=== PATIENT | female | born 1950 | race Caucasian/White ===

== ENCOUNTER 2017-10-17 21:31 | Inpatient (IN) | payer MEDICARE, OTHER, MEDICAID ==
[2017-10-17] MEDS: LEVALBUTEROL (NEB) 1.25 MG/0.5 ML AMP HHN (21:56)
[2017-10-17] MEDS: CEFEPIME 2GM/50 ML (PMX) 50 ML IVPB (22:06)
[2017-10-17] MEDS: hydrALAzine 20 MG INJ IV (22:07)
[2017-10-17] MEDS: SODIUM CHLORIDE 0.9% 1L BAG IV* (22:08)
[2017-10-17 22:11] LABS: ADD MAN DIFF? NO
[2017-10-17] MEDS: LORAZEPAM 2 MG INJ IV (22:12)
[2017-10-17 22:14] LABS: WHITE BLOOD COUNT 7.6 10^3/ul (4.8-10.8)
[2017-10-17 22:14] LABS: BASOPHIL # 0.1 10^3/ul (0.0-0.1); BASOPHILS % 0.8 % (0.0-2.0); EOSINOPHILS # 0.3 10^3/ul (0.0-0.5); EOSINOPHILS % 3.8 % (0.0-7.0); HEMATOCRIT 42.7 % (37.0-47.0); HEMOGLOBIN 13.3 g/dl (12.0-16.0); LYMPHOCYTES # 2.8 10^3/ul (0.8-2.9); LYMPHOCYTES % 36.3 % (15.0-51.0); MEAN CORPUSCULAR HGB CONC 31.1 g/dl (32.0-37.0); MEAN CORPUSCULAR VOLUME 89.9 fl (82.0-101.0); MEAN PLATELET VOLUME 11.7 fl (7.4-10.4); MONOCYTE # 0.9 10^3/ul (0.3-0.9); MONOCYTES % 12.2 % (0.0-11.0); NEUTROPHIL # 3.5 10^3/ul (1.6-7.5); NEUTROPHILS % 46.6 % (39.0-77.0); PLATELET COUNT 239 10^3/UL (140-415); RED BLOOD COUNT 4.75 10^6/ul (4.20-5.40); RED CELL DISTRIBUTION WIDTH 14.9 % (11.5-14.5)
[2017-10-17] MEDS: METHYLPREDNISOLONE 125 MG INJ IV (22:23)
[2017-10-17 22:35] LABS: PARTIAL THROMBOPLASTIN TIME 25.1 Sec (25.0-35.0); PROTIME 12.2 Sec (11.9-14.9)
[2017-10-17 22:37] LABS: ALANINE AMINOTRANSFERASE 15 IU/L (13-69); ALBUMIN 4.2 g/dl (3.3-4.9); ALKALINE PHOSPHATASE 87 IU/L (42-121); ANION GAP 15 (8-16); ASPARTATE AMINO TRANSFERASE 25 IU/L (15-46); BILIRUBIN,INDIRECT 0.4 mg/dl (0-1.1); BILIRUBIN,TOTAL 0.4 mg/dl (0.2-1.3); BLOOD UREA NITROGEN 24 mg/dl (7-20); CALCIUM 9.8 mg/dl (8.4-10.2); CARBON DIOXIDE 33 mmol/L (21-31); CHLORIDE 101 mmol/L (97-110); CREATININE 0.64 mg/dl (0.44-1.00); GLUCOSE 123 mg/dl (70-220); POTASSIUM 4.3 mmol/L (3.5-5.1); SODIUM 145 mmol/L (135-144); TOTAL PROTEIN 7.7 g/dl (6.1-8.1)
[2017-10-17 22:43] LABS: LACTIC ACID 1.9 mmol/L (0.5-2.0)
[2017-10-17 22:53] LABS: B-TYPE NATRIURETIC PEPTIDE 227 PG/ML (0-125); TROPONIN-I 0.012 ng/ml (0.00-0.12)
[2017-10-17 23:23] LABS: URINE PH (Dip) POC 5.5 (5.0-8.5)
[2017-10-17 23:23] LABS: URINE BLOOD (Dip) POC Negative (NEGATIVE); URINE GLUCOSE (Dip) POC Negative (NEGATIVE); URINE KETONES (Dip) POC 1+ (NEGATIVE); URINE LEUKOCYTE EST (Dip) POC Negative (NEGATIVE); URINE NITRITE (Dip) POC Negative (NEGATIVE); URINE TOTAL PROTEIN POC 1+ (NEGATIVE)
[2017-10-18 00:04] LABS: ADD UMIC YES; UR AMORPHOUS CRYSTAL FEW /HPF (NONE SEEN); UR ASCORBIC ACID NEGATIVE (NEGATIVE); UR BILIRUBIN (Dip) NEGATIVE (NEGATIVE); UR BLOOD (Dip) NEGATIVE (NEGATIVE); UR CLARITY CLEAR (CLEAR); UR COLOR YELLOW (YELLOW); UR GLUCOSE (Dip) NEGATIVE (NEGATIVE); UR GRANULAR CAST FEW /HPF (NONE SEEN); UR KETONES (Dip) 1+ mg/dL (NEGATIVE); UR LEUKOCYTE ESTERASE (Dip) NEGATIVE Leu/ul (NEGATIVE); UR MUCUS MODERATE /HPF (NONE SEEN); UR NITRITE (Dip) NEGATIVE (NEGATIVE); UR RBC 5 /HPF (0-5); UR SPECIFIC GRAVITY (Dip) 1.023 (1.003-1.030); UR TOTAL PROTEIN (Dip) 1+ mg/dl (NEGATIVE); UR UROBILINOGEN (Dip) NEGATIVE (NEGATIVE); UR WBC 3 /HPF (0-5)
[2017-10-18] MEDS ORDERED: ACETAMINOPHEN 325 MG TAB PO (00:30)
[2017-10-18] MEDS ORDERED: ONDANSETRON 4 MG INJ IV (00:30)
[2017-10-18 00:35] LABS: LACTIC ACID 2.3 mmol/L (0.5-2.0)
[2017-10-18] MEDS ORDERED: BISACODYL (EC) 5 MG TAB PO (04:00)
[2017-10-18] MEDS ORDERED: MAGNESIUM HYDROXIDE 30ML CUP PO (04:00)
[2017-10-18] MEDS: LEVALBUTEROL (NEB) 0.63 MG/3 ML AMP HHN ×4 (04:31→19:59)
[2017-10-18 04:32] LABS: LACTIC ACID 2.9 mmol/L (0.5-2.0)
[2017-10-18] MEDS: ASPIRIN (EC) 81 MG TAB PO (09:00)
[2017-10-18] MEDS: AMLODIPINE 5 MG TAB PO (09:00)
[2017-10-18] MEDS: MULTIVITAMINS/MINERALS TAB PO (09:00)
[2017-10-18] MEDS: METHYLPREDNISOLONE 125 MG INJ IV (09:04)
[2017-10-18] MEDS: ENOXAPARIN 40 MG/0.4 ML SYG SC ×2 (09:07→20:15)
[2017-10-18] MEDS: ENALAPRILAT 1.25 MG INJ IV ×2 (09:12→19:57)
[2017-10-18] MEDS ORDERED: LEVALBUTEROL (NEB) 0.63 MG/3 ML AMP HHN (13:00)
[2017-10-18] MEDS ORDERED: [UNRECOGNIZED DRUG - OTHER] IM* (13:00)
[2017-10-18] MEDS ORDERED: VANCOMYCIN IV PER PHARMACY XX (13:00)
[2017-10-18 13:11] LABS: ADD MAN DIFF? NO
[2017-10-18 13:13] LABS: WHITE BLOOD COUNT 7.1 10^3/ul (4.8-10.8)
[2017-10-18 13:13] LABS: ABNORMAL IP MESSAGE 1; HEMOGLOBIN 11.8 g/dl (12.0-16.0); LYMPHOCYTES # 0.4 10^3/ul (0.8-2.9); LYMPHOCYTES % 6.2 % (15.0-51.0); MEAN CORPUSCULAR HEMOGLOBIN 28.5 pg (29.0-33.0); MEAN CORPUSCULAR HGB CONC 31.9 g/dl (32.0-37.0); MEAN CORPUSCULAR VOLUME 89.4 fl (82.0-101.0); MEAN PLATELET VOLUME 10.7 fl (7.4-10.4); MONOCYTE # 0.2 10^3/ul (0.3-0.9); MONOCYTES % 2.4 % (0.0-11.0); NEUTROPHIL # 6.5 10^3/ul (1.6-7.5); NEUTROPHILS % 91.1 % (39.0-77.0); PLATELET COUNT 232 10^3/UL (140-415); RED BLOOD COUNT 4.14 10^6/ul (4.20-5.40); RED CELL DISTRIBUTION WIDTH 15.3 % (11.5-14.5)
[2017-10-18 13:32] LABS: ANION GAP 14 (8-16); BLOOD UREA NITROGEN 24 mg/dl (7-20); CALCIUM 9.1 mg/dl (8.4-10.2); CARBON DIOXIDE 30 mmol/L (21-31); CHLORIDE 105 mmol/L (97-110); CREATININE 0.63 mg/dl (0.44-1.00); GLUCOSE 148 mg/dl (70-220); POTASSIUM 4.3 mmol/L (3.5-5.1); SODIUM 145 mmol/L (135-144)
[2017-10-18] MEDS ORDERED: VANCOMYCIN 1.25 GM in SOD CHLORIDE 0.9% 250 ML IVPB (14:00)
[2017-10-18] MEDS: ATORVASTATIN 10 MG TAB PO (20:11)
[2017-10-18] MEDS: MIRTAZAPINE 15 MG TAB PO (20:11)
[2017-10-19] MEDS: LEVALBUTEROL (NEB) 0.63 MG/3 ML AMP HHN ×4 (01:20→21:16)
[2017-10-19 07:51] LABS: ADD MAN DIFF? NO
[2017-10-19 07:56] LABS: WHITE BLOOD COUNT 11.3 10^3/ul (4.8-10.8)
[2017-10-19 07:56] LABS: BASOPHILS % 0.2 % (0.0-2.0); EOSINOPHILS % 0.3 % (0.0-7.0); HEMATOCRIT 36.7 % (37.0-47.0); HEMOGLOBIN 11.6 g/dl (12.0-16.0); LYMPHOCYTES # 1.3 10^3/ul (0.8-2.9); LYMPHOCYTES % 11.2 % (15.0-51.0); MEAN CORPUSCULAR HEMOGLOBIN 28.4 pg (29.0-33.0); MEAN CORPUSCULAR HGB CONC 31.6 g/dl (32.0-37.0); MEAN CORPUSCULAR VOLUME 89.7 fl (82.0-101.0); MEAN PLATELET VOLUME 11.4 fl (7.4-10.4); MONOCYTE # 1.1 10^3/ul (0.3-0.9); MONOCYTES % 9.9 % (0.0-11.0); NEUTROPHIL # 8.8 10^3/ul (1.6-7.5); PLATELET COUNT 229 10^3/UL (140-415); RED BLOOD COUNT 4.09 10^6/ul (4.20-5.40); RED CELL DISTRIBUTION WIDTH 15.9 % (11.5-14.5)
[2017-10-19 08:17] LABS: ANION GAP 12 (8-16); BLOOD UREA NITROGEN 23 mg/dl (7-20); CARBON DIOXIDE 30 mmol/L (21-31); CHLORIDE 107 mmol/L (97-110); CREATININE 0.66 mg/dl (0.44-1.00); GLUCOSE 82 mg/dl (70-220); POTASSIUM 3.8 mmol/L (3.5-5.1); SODIUM 145 mmol/L (135-144)
[2017-10-19] MEDS: AMLODIPINE 5 MG TAB PO (09:00)
[2017-10-19] MEDS: ENOXAPARIN 40 MG/0.4 ML SYG SC (09:00)
[2017-10-19] MEDS: MULTIVITAMINS/MINERALS TAB PO (09:00)
[2017-10-19] MEDS: ASPIRIN (EC) 81 MG TAB PO (09:00)
[2017-10-19] MEDS: METHYLPREDNISOLONE 125 MG INJ IV (09:31)
[2017-10-19] MEDS: INFLUENZA VIRUS VACCINE 0.5 ML (DISPENSING) IM* (11:00)
[2017-10-19] MEDS: ENALAPRILAT 1.25 MG INJ IV (12:32)
[2017-10-19] MEDS ORDERED: VANCOMYCIN IV PER PHARMACY XX (15:00)
[2017-10-19] MEDS: VANCOMYCIN 1.25 GM in SOD CHLORIDE 0.9% 250 ML IVPB (16:37)
[2017-10-19 19:56] LABS: MAGNESIUM 1.5 mg/dl (1.7-2.5)
[2017-10-19] MEDS: MAGNESIUM SULFATE 2 GM/50 ML 50 ML IVPB (20:28)
[2017-10-19] MEDS: METOPROLOL 50 MG TAB GTB (21:00)
[2017-10-19] MEDS: ATORVASTATIN 10 MG TAB PO (21:00)
[2017-10-19] MEDS: MIRTAZAPINE 15 MG TAB PO (21:00)
[2017-10-19] MEDS: METHYLPREDNISOLONE 40 MG INJ IV (22:02)
[2017-10-19] MEDS: POTASSIUM CHLORIDE 50 ML IVPB (22:33)
[2017-10-20] MEDS: POTASSIUM CHLORIDE 50 ML IVPB ×2 (00:02→01:13)
[2017-10-20] MEDS: hydrALAzine 20 MG INJ IV ×2 (01:09→23:45)
[2017-10-20] MEDS: LEVALBUTEROL (NEB) 0.63 MG/3 ML AMP HHN ×4 (01:17→19:39)
[2017-10-20] MEDS: MAGNESIUM SULFATE 2 GM/50 ML 50 ML IVPB (08:00)
[2017-10-20 08:42] LABS: ADD MAN DIFF? NO
[2017-10-20 08:44] LABS: BASOPHILS % 0.2 % (0.0-2.0); EOSINOPHILS % 0.4 % (0.0-7.0); HEMATOCRIT 36.5 % (37.0-47.0); HEMOGLOBIN 11.5 g/dl (12.0-16.0); LYMPHOCYTES # 1.3 10^3/ul (0.8-2.9); LYMPHOCYTES % 11.6 % (15.0-51.0); MEAN CORPUSCULAR HEMOGLOBIN 27.9 pg (29.0-33.0); MEAN CORPUSCULAR HGB CONC 31.5 g/dl (32.0-37.0); MEAN CORPUSCULAR VOLUME 88.6 fl (82.0-101.0); MEAN PLATELET VOLUME 10.9 fl (7.4-10.4); MONOCYTE # 1.3 10^3/ul (0.3-0.9); MONOCYTES % 11.3 % (0.0-11.0); NEUTROPHIL # 8.6 10^3/ul (1.6-7.5); NEUTROPHILS % 76.1 % (39.0-77.0); PLATELET COUNT 258 10^3/UL (140-415); RED BLOOD COUNT 4.12 10^6/ul (4.20-5.40); RED CELL DISTRIBUTION WIDTH 15.4 % (11.5-14.5)
[2017-10-20 08:44] LABS: WHITE BLOOD COUNT 11.3 10^3/ul (4.8-10.8)
[2017-10-20] MEDS: ASPIRIN (EC) 81 MG TAB PO (09:00)
[2017-10-20] MEDS: MULTIVITAMINS/MINERALS TAB PO (09:00)
[2017-10-20] MEDS: METOPROLOL 100 MG TAB GTB ×2 (09:00→21:00)
[2017-10-20] MEDS ORDERED: METOPROLOL 50 MG TAB GTB (09:00)
[2017-10-20] MEDS: AMLODIPINE 5 MG TAB PO (09:00)
[2017-10-20 09:07] LABS: ANION GAP 10 (8-16); BLOOD UREA NITROGEN 18 mg/dl (7-20); CALCIUM 8.7 mg/dl (8.4-10.2); CARBON DIOXIDE 34 mmol/L (21-31); CHLORIDE 101 mmol/L (97-110); CREATININE 0.59 mg/dl (0.44-1.00); GLUCOSE 80 mg/dl (70-220); MAGNESIUM 2.1 mg/dl (1.7-2.5); POTASSIUM 4.2 mmol/L (3.5-5.1); SODIUM 141 mmol/L (135-144)
[2017-10-20] MEDS: METHYLPREDNISOLONE 40 MG INJ IV ×2 (09:49→21:44)
[2017-10-20] MEDS: ENOXAPARIN 40 MG/0.4 ML SYG SC (09:54)
[2017-10-20] MEDS: VANCOMYCIN 500MG/NS (PMX) 100 ML IVPB ×2 (13:20→23:48)
[2017-10-20] MEDS ORDERED: VANCOMYCIN 1 GM 250 ML IVPB (17:00)
[2017-10-20] MEDS: RISPERIDONE 0.25 MG TAB PO (21:00)
[2017-10-20] MEDS ORDERED: HALOPERIDOL 5 MG INJ IM (21:00)
[2017-10-20] MEDS: MIRTAZAPINE 15 MG TAB PO (21:00)
[2017-10-20] MEDS: ATORVASTATIN 10 MG TAB PO (21:00)
[2017-10-21] MEDS: LEVALBUTEROL (NEB) 0.63 MG/3 ML AMP HHN ×4 (01:19→19:26)
[2017-10-21] MEDS: AMLODIPINE 5 MG TAB PO (09:00)
[2017-10-21] MEDS: ENOXAPARIN 40 MG/0.4 ML SYG SC (09:00)
[2017-10-21] MEDS: MULTIVITAMINS/MINERALS TAB PO (09:00)
[2017-10-21] MEDS: RISPERIDONE 0.25 MG TAB PO ×2 (09:00→21:07)
[2017-10-21] MEDS: ASPIRIN (EC) 81 MG TAB PO (09:00)
[2017-10-21] MEDS: METOPROLOL 100 MG TAB GTB ×2 (09:00→21:07)
[2017-10-21] MEDS: METHYLPREDNISOLONE 40 MG INJ IV ×2 (09:39→21:07)
[2017-10-21] MEDS: hydrALAzine 20 MG INJ IV (09:40)
[2017-10-21] MEDS: HALOPERIDOL 5 MG INJ IM ×2 (10:30→12:00)
[2017-10-21 11:33] LABS: VANCOMYCIN,TROUGH 13.4 ug/ml (10.0-20.0)
[2017-10-21] MEDS: BENZTROPINE 2 MG INJ IM (11:59)
[2017-10-21] MEDS: VALPROIC ACID 250 MG CAP PO ×2 (12:00→21:06)
[2017-10-21] MEDS: VANCOMYCIN 500MG/NS (PMX) 100 ML IVPB ×2 (12:15→23:02)
[2017-10-21] MEDS: MIRTAZAPINE 15 MG TAB PO (21:06)
[2017-10-21] MEDS: ATORVASTATIN 10 MG TAB PO (21:06)
[2017-10-22] MEDS: HALOPERIDOL 5 MG INJ IM ×2 (00:09→10:27)
[2017-10-22] MEDS: BENZTROPINE 2 MG INJ IM ×2 (00:10→10:25)
[2017-10-22] MEDS: LEVALBUTEROL (NEB) 0.63 MG/3 ML AMP HHN ×4 (01:25→19:33)
[2017-10-22] MEDS: AMLODIPINE 5 MG TAB PO (09:00)
[2017-10-22] MEDS: ASPIRIN (EC) 81 MG TAB PO (09:00)
[2017-10-22] MEDS: RISPERIDONE 0.25 MG TAB PO ×2 (09:00→21:18)
[2017-10-22] MEDS: METOPROLOL 100 MG TAB GTB ×2 (09:00→21:19)
[2017-10-22] MEDS: VALPROIC ACID 250 MG CAP PO ×2 (09:00→21:18)
[2017-10-22] MEDS: MULTIVITAMINS/MINERALS TAB PO (09:00)
[2017-10-22] MEDS: ENOXAPARIN 40 MG/0.4 ML SYG SC (09:00)
[2017-10-22] MEDS: hydrALAzine 20 MG INJ IV ×2 (09:38→21:14)
[2017-10-22] MEDS: METHYLPREDNISOLONE 40 MG INJ IV ×2 (09:38→21:14)
[2017-10-22] MEDS: VANCOMYCIN 500MG/NS (PMX) 100 ML IVPB ×2 (11:23→23:00)
[2017-10-22] MEDS: MIRTAZAPINE 15 MG TAB PO (21:17)
[2017-10-22] MEDS: ATORVASTATIN 10 MG TAB PO (21:18)
[2017-10-23] MEDS: ENALAPRILAT 1.25 MG INJ IV (01:25)
[2017-10-23] MEDS: LEVALBUTEROL (NEB) 0.63 MG/3 ML AMP HHN ×4 (01:57→20:00)
[2017-10-23 08:56] LABS: ADD MAN DIFF? NO
[2017-10-23 08:58] LABS: BASOPHILS % 0.1 % (0.0-2.0); HEMATOCRIT 42.2 % (37.0-47.0); HEMOGLOBIN 13.6 g/dl (12.0-16.0); LYMPHOCYTES # 0.9 10^3/ul (0.8-2.9); LYMPHOCYTES % 11.7 % (15.0-51.0); MEAN CORPUSCULAR HGB CONC 32.2 g/dl (32.0-37.0); MONOCYTE # 0.7 10^3/ul (0.3-0.9); MONOCYTES % 8.6 % (0.0-11.0); NEUTROPHIL # 6.4 10^3/ul (1.6-7.5); PLATELET COUNT 327 10^3/UL (140-415); RED BLOOD COUNT 4.85 10^6/ul (4.20-5.40); RED CELL DISTRIBUTION WIDTH 15.9 % (11.5-14.5)
[2017-10-23 08:58] LABS: WHITE BLOOD COUNT 8.1 10^3/ul (4.8-10.8)
[2017-10-23] MEDS: AMLODIPINE 5 MG TAB PO (09:00)
[2017-10-23] MEDS: ASPIRIN (EC) 81 MG TAB PO (09:00)
[2017-10-23] MEDS: MULTIVITAMINS/MINERALS TAB PO (09:00)
[2017-10-23] MEDS: METOPROLOL 100 MG TAB GTB ×2 (09:00→21:00)
[2017-10-23] MEDS: VALPROIC ACID 250 MG CAP PO ×2 (09:00→21:00)
[2017-10-23] MEDS: RISPERIDONE 0.25 MG TAB PO ×2 (09:00→21:00)
[2017-10-23] MEDS: METHYLPREDNISOLONE 40 MG INJ IV ×2 (09:00→22:05)
[2017-10-23] MEDS: ENOXAPARIN 40 MG/0.4 ML SYG SC (09:00)
[2017-10-23 09:29] LABS: ANION GAP 17 (8-16); BLOOD UREA NITROGEN 27 mg/dl (7-20); CALCIUM 9.5 mg/dl (8.4-10.2); CARBON DIOXIDE 31 mmol/L (21-31); CHLORIDE 97 mmol/L (97-110); CREATININE 0.73 mg/dl (0.44-1.00); GLUCOSE 97 mg/dl (70-220); POTASSIUM 4.3 mmol/L (3.5-5.1); SODIUM 141 mmol/L (135-144)
[2017-10-23] MEDS: VANCOMYCIN 500MG/NS (PMX) 100 ML IVPB (12:38)
[2017-10-23] MEDS: MIRTAZAPINE 15 MG TAB PO (21:00)
[2017-10-23] MEDS: ATORVASTATIN 10 MG TAB PO (21:00)
[2017-10-24] MEDS: LEVALBUTEROL (NEB) 0.63 MG/3 ML AMP HHN ×4 (01:35→20:00)
[2017-10-24] MEDS: HALOPERIDOL 5 MG INJ IM ×2 (03:11→09:03)
[2017-10-24] MEDS: BENZTROPINE 2 MG INJ IM ×2 (03:12→09:00)
[2017-10-24] MEDS: METHYLPREDNISOLONE 40 MG INJ IV ×2 (08:59→20:22)
[2017-10-24] MEDS: MULTIVITAMINS/MINERALS TAB PO (09:00)
[2017-10-24] MEDS: METOPROLOL 100 MG TAB GTB ×2 (09:00→21:00)
[2017-10-24] MEDS: VALPROIC ACID 250 MG CAP PO ×2 (09:00→21:00)
[2017-10-24] MEDS: ASPIRIN (EC) 81 MG TAB PO (09:00)
[2017-10-24] MEDS: RISPERIDONE 0.25 MG TAB PO ×2 (09:00→21:00)
[2017-10-24] MEDS: AMLODIPINE 5 MG TAB PO (09:00)
[2017-10-24] MEDS: ENOXAPARIN 40 MG/0.4 ML SYG SC (09:11)
[2017-10-24 12:42] LABS: ADD MAN DIFF? NO
[2017-10-24 13:04] LABS: BASOPHILS % 0.1 % (0.0-2.0); HEMATOCRIT 42.8 % (37.0-47.0); HEMOGLOBIN 13.8 g/dl (12.0-16.0); LYMPHOCYTES # 0.6 10^3/ul (0.8-2.9); LYMPHOCYTES % 3.8 % (15.0-51.0); MEAN CORPUSCULAR HEMOGLOBIN 28.3 pg (29.0-33.0); MEAN CORPUSCULAR HGB CONC 32.2 g/dl (32.0-37.0); MEAN CORPUSCULAR VOLUME 87.7 fl (82.0-101.0); MEAN PLATELET VOLUME 10.9 fl (7.4-10.4); MONOCYTE # 0.8 10^3/ul (0.3-0.9); MONOCYTES % 5.2 % (0.0-11.0); NEUTROPHIL # 14.3 10^3/ul (1.6-7.5); NEUTROPHILS % 90.5 % (39.0-77.0); PLATELET COUNT 326 10^3/UL (140-415); RED BLOOD COUNT 4.88 10^6/ul (4.20-5.40); RED CELL DISTRIBUTION WIDTH 15.8 % (11.5-14.5)
[2017-10-24 13:04] LABS: WHITE BLOOD COUNT 15.9 10^3/ul (4.8-10.8)
[2017-10-24 13:07] LABS: ANION GAP 15 (8-16); BLOOD UREA NITROGEN 46 mg/dl (7-20); CALCIUM 9.3 mg/dl (8.4-10.2); CARBON DIOXIDE 32 mmol/L (21-31); CHLORIDE 96 mmol/L (97-110); CREATININE 0.71 mg/dl (0.44-1.00); GLUCOSE 146 mg/dl (70-220); POTASSIUM 4.6 mmol/L (3.5-5.1); SODIUM 138 mmol/L (135-144)
[2017-10-24] MEDS: ATORVASTATIN 10 MG TAB PO (21:00)
[2017-10-24] MEDS: MIRTAZAPINE 15 MG TAB PO (21:00)
[2017-10-25] MEDS: LEVALBUTEROL (NEB) 0.63 MG/3 ML AMP HHN ×4 (01:13→19:53)
[2017-10-25] MEDS: AMLODIPINE 5 MG TAB PO (09:00)
[2017-10-25] MEDS: METOPROLOL 100 MG TAB GTB (09:00)
[2017-10-25] MEDS: ASPIRIN (EC) 81 MG TAB PO (09:00)
[2017-10-25] MEDS: RISPERIDONE 0.25 MG TAB PO (09:00)
[2017-10-25] MEDS: VALPROIC ACID 250 MG CAP PO (09:00)
[2017-10-25] MEDS: MULTIVITAMINS/MINERALS TAB PO (09:00)
[2017-10-25] MEDS: METHYLPREDNISOLONE 40 MG INJ IV (09:15)
[2017-10-25] MEDS: HALOPERIDOL 5 MG INJ IM (09:18)
[2017-10-25] MEDS: BENZTROPINE 2 MG INJ IM (09:19)
[2017-10-25] MEDS: ENOXAPARIN 40 MG/0.4 ML SYG SC (09:25)
[2017-10-25 09:50] LABS: ADD MAN DIFF? NO
[2017-10-25 09:52] LABS: BASOPHILS % 0.2 % (0.0-2.0); EOSINOPHILS % 0.3 % (0.0-7.0); HEMATOCRIT 42.3 % (37.0-47.0); HEMOGLOBIN 13.6 g/dl (12.0-16.0); LYMPHOCYTES # 1.2 10^3/ul (0.8-2.9); LYMPHOCYTES % 9.9 % (15.0-51.0); MEAN CORPUSCULAR HEMOGLOBIN 28.9 pg (29.0-33.0); MEAN CORPUSCULAR HGB CONC 32.2 g/dl (32.0-37.0); MEAN CORPUSCULAR VOLUME 89.8 fl (82.0-101.0); MEAN PLATELET VOLUME 10.7 fl (7.4-10.4); MONOCYTE # 0.6 10^3/ul (0.3-0.9); NEUTROPHILS % 83.7 % (39.0-77.0); PLATELET COUNT 281 10^3/UL (140-415); RED BLOOD COUNT 4.71 10^6/ul (4.20-5.40); RED CELL DISTRIBUTION WIDTH 15.3 % (11.5-14.5)
[2017-10-25 10:14] LABS: ANION GAP 14 (8-16); BLOOD UREA NITROGEN 42 mg/dl (7-20); CALCIUM 9.1 mg/dl (8.4-10.2); CARBON DIOXIDE 32 mmol/L (21-31); CHLORIDE 100 mmol/L (97-110); CREATININE 0.65 mg/dl (0.44-1.00); GLUCOSE 90 mg/dl (70-220); POTASSIUM 4.4 mmol/L (3.5-5.1); SODIUM 142 mmol/L (135-144)
[2017-10-25] MEDS: hydrALAzine 20 MG INJ IV (11:49)
[2017-10-25] MEDS: ENALAPRILAT 1.25 MG INJ IV (15:27)
[2017-10-25] MEDS: DILTIAZEM 25 MG INJ IV (18:40)
== END 2017-10-25 20:30 | DRG 189 ==
LOC: MS4 10-18 00:14 → E/R 21:31
DX: J96.20 Acute and chronic respiratory failure, unspecified whether with hypoxia or hypercapnia (principal); J44.1 Chronic obstructive pulmonary disease with (acute) exacerbation; I47.2 Ventricular tachycardia; F31.9 Bipolar disorder, unspecified; I10 Essential (primary) hypertension; I25.2 Old myocardial infarction; F17.200 Nicotine dependence, unspecified, uncomplicated; F25.1 Schizoaffective disorder, depressive type; R33.9 Retention of urine, unspecified; D64.9 Anemia, unspecified
CPT/HCPCS: 36415; 71045; 80048; 80053; 80202; 81001; 81003; 83605; 83735; 83880; 84484; 85025; 85610; 85730; 87040; 87081; 87086; 90662; 92610; 93005; 93306; 94640; 94660; 94664; 96374; 96375; 99291-25

== ENCOUNTER 2017-12-12 22:07 | Inpatient (IN) | payer MEDICARE, OTHER ==
[2017-12-12] MEDS ORDERED: NALOXONE (0.4 MG/ML) INJ IV (22:30)
[2017-12-12 22:39] LABS: Allen Test ACCEPTAB; Arterial Base Excess 14.1 mmol/L (-3.0-3); Arterial Blood Gas Oxygen Sat 94.1 mmHG (95.0-98.0); Arterial COHb 0.8 % (0.0-3.0); Arterial Fraction of Oxyhgb 93.1 % (93.0-99.0); Arterial HCO3 46.8 mmol/L (22.0-26.0); Arterial MetHb 0.3 % (0.0-1.5); Arterial Total Hemglobin 11.1 g/dl (12.0-18.0); Arterial pCO2 129.8 mmhg (35-45); MODE NASAL CANNULA; Site Left Radial
[2017-12-12] MEDS: ONDANSETRON 4 MG INJ IV (22:41)
[2017-12-12] MEDS: SOD CHLORIDE 0.9% 1,000 ML IV (22:41)
[2017-12-12 22:49] LABS: ADD MAN DIFF? NO
[2017-12-12 22:50] LABS: ABNORMAL IP MESSAGE 1; BASOPHIL # 0.1 10^3/ul (0.0-0.1); BASOPHILS % 0.4 % (0.0-2.0); EOSINOPHILS # 0.1 10^3/ul (0.0-0.5); EOSINOPHILS % 0.7 % (0.0-7.0); HEMATOCRIT 35.3 % (37.0-47.0); HEMOGLOBIN 10.2 g/dl (12.0-16.0); LYMPHOCYTES # 1.6 10^3/ul (0.8-2.9); LYMPHOCYTES % 11.3 % (15.0-51.0); MEAN CORPUSCULAR HEMOGLOBIN 29.9 pg (29.0-33.0); MEAN CORPUSCULAR HGB CONC 28.9 g/dl (32.0-37.0); MEAN CORPUSCULAR VOLUME 103.5 fl (82.0-101.0); MEAN PLATELET VOLUME 10.5 fl (7.4-10.4); MONOCYTE # 1.4 10^3/ul (0.3-0.9); MONOCYTES % 10.2 % (0.0-11.0); NEUTROPHIL # 10.5 10^3/ul (1.6-7.5); NEUTROPHILS % 76.9 % (39.0-77.0); PLATELET COUNT 198 10^3/UL (140-415); RED BLOOD COUNT 3.41 10^6/ul (4.20-5.40); RED CELL DISTRIBUTION WIDTH 16.8 % (11.5-14.5)
[2017-12-12 22:50] LABS: WHITE BLOOD COUNT 13.7 10^3/ul (4.8-10.8)
[2017-12-12 22:57] LABS: POSITIVE DIFF @See below
[2017-12-12 23:07] LABS: ALANINE AMINOTRANSFERASE 21 IU/L (13-69); ALBUMIN 3.3 g/dl (3.3-4.9); ALBUMIN/GLOBULIN RATIO 0.94; ALKALINE PHOSPHATASE 75 IU/L (42-121); ASPARTATE AMINO TRANSFERASE 17 IU/L (15-46); BILIRUBIN,INDIRECT 0.2 mg/dl (0-1.1); BILIRUBIN,TOTAL 0.2 mg/dl (0.2-1.3); BLOOD UREA NITROGEN 38 mg/dl (7-20); CALCIUM 9.4 mg/dl (8.4-10.2); CHLORIDE 100 mmol/L (97-110); GLUCOSE 129 mg/dl (70-220); POTASSIUM 4.9 mmol/L (3.5-5.1); SODIUM 150 mmol/L (135-144); TOTAL PROTEIN 6.8 g/dl (6.1-8.1)
[2017-12-12 23:16] LABS: LACTIC ACID 0.9 mmol/L (0.5-2.0)
[2017-12-12 23:17] LABS: ACETAMINOPHEN < 10.0 ug/ml (10.0-30.0); ANION GAP 13 (8-16); ETHANOL < 10.0 mg/dl; SALICYLATE < 1.0 mg/dl (5.0-30.0)
[2017-12-12 23:20] LABS: CARBON DIOXIDE 42 mmol/L (21-31)
[2017-12-12] MEDS: EPINEPHRINE 4 MG in NS 250 ML IV (23:30)
[2017-12-13] MEDS: ALBUTEROL 0.083% (NEB) 2.5 MG/3 ML AMP HHN (00:50)
[2017-12-13] MEDS: IPRATROPIUM (NEB) 0.5 MG/2.5 ML AMP HHN (00:51)
[2017-12-13] MEDS: METHYLPREDNISOLONE 125 MG INJ IV (01:10)
[2017-12-13 01:53] LABS: AADO2 Arterial 433.3 mmHg (7.0-24.0); Allen Test ACCEPTAB; Arterial Base Excess -1.6 mmol/L (-3.0-3); Arterial HCO3 21.9 mmol/L (22.0-26.0); Arterial pCO2 33.6 mmhg (35-45); Blood Gas Low PEEP Setting 0 cmH2O; MODE VENT - AC; Site Left Radial
[2017-12-13] MEDS ORDERED: MIDAZOLAM (DRIP) 50 mg/50 mL 50 ML IV (03:30)
[2017-12-13] MEDS ORDERED: DEXTROSE 50% 50 ML SYRINGE IV ×2 (03:30)
[2017-12-13] MEDS ORDERED: PHENYLephrine 20MG IN 250 ML 250 ML IV (03:30)
[2017-12-13] MEDS ORDERED: ACCU-CHEK XX (03:30)
[2017-12-13] MEDS: PROPOFOL 100 ML IV ×2 (03:40→17:18)
[2017-12-13 03:55] LABS: AADO2 Arterial 494.9 mmHg (7.0-24.0); Allen Test ACCEPTAB; Arterial Base Excess 7.3 mmol/L (-3.0-3); Arterial Blood Gas Oxygen Sat 98.8 mmHG (95.0-98.0); Arterial COHb 0 % (0.0-3.0); Arterial Fraction of Oxyhgb 98.5 % (93.0-99.0); Arterial HCO3 33.6 mmol/L (22.0-26.0); Arterial MetHb 0.3 % (0.0-1.5); Arterial Total Hemglobin 10.6 g/dl (12.0-18.0); Arterial pCO2 56.9 mmhg (35-45); MODE VENT - AC; Site Left Radial
[2017-12-13] MEDS: NORepinephrine 8MG/250 ML (PMX 250 ML IV (03:56)
[2017-12-13] MEDS: EPINEPHrine 4 MG in DEXTROSE 5% 246 ML IV (03:57)
[2017-12-13] MEDS ORDERED: PHENYLephrine 40 MG in DEXTROSE 5% 496 ML IV (04:00)
[2017-12-13] MEDS ORDERED: DOPamine-D5W 1.6 MG/ML 250 ML IV (04:00)
[2017-12-13 04:13] LABS: ADD MAN DIFF? NO
[2017-12-13 04:14] LABS: WHITE BLOOD COUNT 18.5 10^3/ul (4.8-10.8)
[2017-12-13 04:14] LABS: BASOPHIL # 0.1 10^3/ul (0.0-0.1); BASOPHILS % 0.3 % (0.0-2.0); EOSINOPHILS % 0.1 % (0.0-7.0); HEMATOCRIT 33.5 % (37.0-47.0); HEMOGLOBIN 9.8 g/dl (12.0-16.0); LYMPHOCYTES # 1.6 10^3/ul (0.8-2.9); LYMPHOCYTES % 8.6 % (15.0-51.0); MEAN CORPUSCULAR HEMOGLOBIN 30.3 pg (29.0-33.0); MEAN CORPUSCULAR HGB CONC 29.3 g/dl (32.0-37.0); MEAN CORPUSCULAR VOLUME 103.7 fl (82.0-101.0); MEAN PLATELET VOLUME 10.6 fl (7.4-10.4); MONOCYTE # 1.5 10^3/ul (0.3-0.9); MONOCYTES % 8.1 % (0.0-11.0); NEUTROPHIL # 15.2 10^3/ul (1.6-7.5); PLATELET COUNT 207 10^3/UL (140-415); RED BLOOD COUNT 3.23 10^6/ul (4.20-5.40); RED CELL DISTRIBUTION WIDTH 17.2 % (11.5-14.5)
[2017-12-13] MEDS: INSULIN HUMAN REGULAR 100 UNIT in SOD CHLORIDE 0.9% 99 ML IV (04:15)
[2017-12-13] MEDS: ACCU-CHEK XX ×20 (04:15→23:12)
[2017-12-13 04:34] LABS: INR 1.12; PROTIME 14.6 Sec (11.9-14.9); PT RATIO 1.1
[2017-12-13 04:35] LABS: PARTIAL THROMBOPLASTIN TIME 28.1 Sec (25.0-35.0)
[2017-12-13 04:40] LABS: LACTIC ACID 17.9 mmol/L (0.5-2.0)
[2017-12-13 04:45] LABS: D-DIMER 3902.02 ng/ml (<460)
[2017-12-13] MEDS: VECURONIUM 100 MG in DEXTROSE 5% 100 ML IV (05:04)
[2017-12-13 05:56] LABS: ALANINE AMINOTRANSFERASE 103 IU/L (13-69); ALKALINE PHOSPHATASE 82 IU/L (42-121); AMYLASE 409 U/L (11-123); ANION GAP 27 (8-16); ASPARTATE AMINO TRANSFERASE 242 IU/L (15-46); BILIRUBIN,INDIRECT 0.4 mg/dl (0-1.1); BILIRUBIN,TOTAL 0.4 mg/dl (0.2-1.3); BLOOD UREA NITROGEN 45 mg/dl (7-20); CALCIUM 8.2 mg/dl (8.4-10.2); CARBON DIOXIDE 37 mmol/L (21-31); CHLORIDE 100 mmol/L (97-110); CREATINE KINASE 157 IU/L (23-200); CREATININE 1.12 mg/dl (0.44-1.00); GLUCOSE 167 mg/dl (70-220); LIPASE 112 U/L (23-300); PHOSPHORUS 5.4 mg/dl (2.5-4.9); POTASSIUM 3.7 mmol/L (3.5-5.1); SODIUM 160 mmol/L (135-144)
[2017-12-13 06:07] LABS: CK INDEX 4.8
[2017-12-13] MEDS: DEXTROSE 5%-0.45% NACL 1,000 ML IV ×3 (06:19→20:59)
[2017-12-13] MEDS: METHYLPREDNISOLONE 40 MG INJ IV (06:21)
[2017-12-13] MEDS ORDERED: DOPamine-D5W 1.6 MG/ML 250 ML (07:00)
[2017-12-13] MEDS ORDERED: SUCCINYLCHOLINE CHLORIDE 100 MG/5 ML SYG IV (07:00)
[2017-12-13] MEDS ORDERED: EPINEPHrine 0.1 MG/ML SYG (07:00)
[2017-12-13] MEDS ORDERED: NORepinephrine 8MG/250 ML BAG (07:00)
[2017-12-13] MEDS ORDERED: NA BICARBONATE 8.4% 50 ML SYG (07:00)
[2017-12-13] MEDS ORDERED: ETOMIDATE 20 MG INJ (07:00)
[2017-12-13] MEDS ORDERED: CA CHLORIDE 10% 10 ML SYRINGE (07:00)
[2017-12-13] MEDS ORDERED: MAGNESIUM SULFATE 1 GM/100 ML D5W IVPB (07:00)
[2017-12-13] MEDS ORDERED: ENOXAPARIN 40 MG/0.4 ML SYG SC (09:00)
[2017-12-13] MEDS: ARTIFICIAL TEARS 15 ML OPH BOTH EYES ×3 (09:23→20:55)
[2017-12-13] MEDS: CEFEPIME 1GM/50 ML (PMX) 50 ML IVPB ×2 (09:23→20:58)
[2017-12-13] MEDS: OCULAR LUBRICANT 3.5 GM OPH OINT BOTH EYES ×3 (09:23→20:55)
[2017-12-13] MEDS: PANTOPRAZOLE 40 MG INJ IV (09:23)
[2017-12-13 09:49] LABS: ALANINE AMINOTRANSFERASE 98 IU/L (13-69); ALBUMIN 2.6 g/dl (3.3-4.9); ALBUMIN/GLOBULIN RATIO 0.96; ALKALINE PHOSPHATASE 72 IU/L (42-121); AMYLASE 457 U/L (11-123); BILIRUBIN,INDIRECT 0.4 mg/dl (0-1.1); BILIRUBIN,TOTAL 0.4 mg/dl (0.2-1.3); BLOOD UREA NITROGEN 49 mg/dl (7-20); CALCIUM 8.1 mg/dl (8.4-10.2); CHLORIDE 100 mmol/L (97-110); CREATINE KINASE 329 IU/L (23-200); CREATININE 1.05 mg/dl (0.44-1.00); GLUCOSE 247 mg/dl (70-220); LIPASE 83 U/L (23-300); PHOSPHORUS 0.8 mg/dl (2.5-4.9); SODIUM 155 mmol/L (135-144); TOTAL PROTEIN 5.3 g/dl (6.1-8.1)
[2017-12-13 09:52] LABS: ASPARTATE AMINO TRANSFERASE 184 IU/L (15-46)
[2017-12-13 09:56] LABS: ANION GAP 13 (8-16); CARBON DIOXIDE 44 mmol/L (21-31); POTASSIUM 2.4 mmol/L (3.5-5.1)
[2017-12-13 09:57] LABS: INR 1.21; PROTIME 15.5 Sec (11.9-14.9); PT RATIO 1.2
[2017-12-13 09:58] LABS: PARTIAL THROMBOPLASTIN TIME 27.8 Sec (25.0-35.0)
[2017-12-13 10:00] LABS: D-DIMER 3909.63 ng/ml (<460)
[2017-12-13 10:02] LABS: CK INDEX 3.9; TROPONIN-I 0.257 ng/ml (0.000-0.120)
[2017-12-13 10:09] LABS: LACTIC ACID 11.4 mmol/L (0.5-2.0)
[2017-12-13] MEDS ORDERED: POTASSIUM CHLORIDE 0 ML IVPB (10:21)
[2017-12-13] MEDS ORDERED: POTASSIUM CHLORIDE 100 ML IVPB (10:21)
[2017-12-13] MEDS: POTASSIUM CHLORIDE 50 ML IVPB ×3 (10:30→14:45)
[2017-12-13] MEDS ORDERED: VANCOMYCIN IV PER PHARMACY XX (12:00)
[2017-12-13] MEDS ORDERED: ACETAMINOPHEN 650MG/20.3ML CUP PO (12:00)
[2017-12-13] MEDS ORDERED: MEPERIDINE 25 MG INJ IV ×2 (12:00)
[2017-12-13] MEDS: ASPIRIN 325 MG TAB NGT (12:22)
[2017-12-13] MEDS: VANCOMYCIN 1.25 GM in SOD CHLORIDE 0.9% 250 ML IVPB (13:00)
[2017-12-13 14:57] LABS: ABNORMAL IP MESSAGE 1; HEMATOCRIT 30.8 % (37.0-47.0); HEMOGLOBIN 9.1 g/dl (12.0-16.0); MEAN CORPUSCULAR HEMOGLOBIN 29.3 pg (29.0-33.0); MEAN CORPUSCULAR HGB CONC 29.5 g/dl (32.0-37.0); MEAN PLATELET VOLUME 10.3 fl (7.4-10.4); PLATELET COUNT 155 10^3/UL (140-415); RED BLOOD COUNT 3.11 10^6/ul (4.20-5.40); RED CELL DISTRIBUTION WIDTH 16.9 % (11.5-14.5)
[2017-12-13 14:57] LABS: WHITE BLOOD COUNT 14.2 10^3/ul (4.8-10.8)
[2017-12-13 15:08] LABS: ADD MAN DIFF? YES; POSITIVE DIFF @See below
[2017-12-13 15:20] LABS: ALANINE AMINOTRANSFERASE 89 IU/L (13-69); ALBUMIN 2.7 g/dl (3.3-4.9); ALBUMIN/GLOBULIN RATIO 0.87; ALKALINE PHOSPHATASE 66 IU/L (42-121); AMYLASE 537 U/L (11-123); ASPARTATE AMINO TRANSFERASE 143 IU/L (15-46); BILIRUBIN,INDIRECT 0.5 mg/dl (0-1.1); BILIRUBIN,TOTAL 0.5 mg/dl (0.2-1.3); BLOOD UREA NITROGEN 52 mg/dl (7-20); CHLORIDE 101 mmol/L (97-110); CREATINE KINASE 339 IU/L (23-200); CREATININE 1.01 mg/dl (0.44-1.00); GLUCOSE 115 mg/dl (70-220); LIPASE 50 U/L (23-300); PHOSPHORUS 1.6 mg/dl (2.5-4.9); POTASSIUM 3.6 mmol/L (3.5-5.1); SODIUM 152 mmol/L (135-144); TOTAL PROTEIN 5.8 g/dl (6.1-8.1)
[2017-12-13 15:24] LABS: ANION GAP 15 (8-16)
[2017-12-13 15:24] LABS: LACTIC ACID 6.5 mmol/L (0.5-2.0); MAGNESIUM 2.4 mg/dl (1.7-2.5)
[2017-12-13 15:25] LABS: INR 1.17; PARTIAL THROMBOPLASTIN TIME 29.3 Sec (25.0-35.0); PROTIME 15.1 Sec (11.9-14.9); PT RATIO 1.2
[2017-12-13 15:29] LABS: CK INDEX 3.9
[2017-12-13 15:30] LABS: CARBON DIOXIDE 41 mmol/L (21-31)
[2017-12-13 15:31] LABS: TROPONIN-I 0.152 ng/ml (0.000-0.120)
[2017-12-13 15:37] LABS: AADO2 Arterial 129.3 mmHg (7.0-24.0); Allen Test ACCEPTAB; Arterial Blood Gas Oxygen Sat 91.7 mmHG (95.0-98.0); Arterial COHb 0.4 % (0.0-3.0); Arterial Fraction of Oxyhgb 91.1 % (93.0-99.0); Arterial HCO3 37.2 mmol/L (22.0-26.0); Arterial MetHb 0.3 % (0.0-1.5); Arterial Total Hemglobin 9.6 g/dl (12.0-18.0); Arterial pCO2 37.4 mmhg (35-45); MODE VENT - AC; Site Left Radial
[2017-12-13 16:11] LABS: AADO2 Arterial 256.7 mmHg (7.0-24.0); Allen Test ACCEPTAB; Arterial Base Excess 11.9 mmol/L (-3.0-3); Arterial Blood Gas Oxygen Sat 99.4 mmHG (95.0-98.0); Arterial COHb 0.4 % (0.0-3.0); Arterial Fraction of Oxyhgb 98.7 % (93.0-99.0); Arterial HCO3 34.9 mmol/L (22.0-26.0); Arterial MetHb 0.3 % (0.0-1.5); Arterial Total Hemglobin 10.8 g/dl (12.0-18.0); Arterial pCO2 34.6 mmhg (35-45); MODE VENT - AC; Site Left Radial; Temperature 34.2 C
[2017-12-13 16:25] LABS: D-DIMER > 10000.00 ng/ml (<460)
[2017-12-13 16:45] LABS: ANISOCYTOSIS 1+ (0-0); BAND NEUTROPHILS #M 1.9 10^3/ul (0.0-0.6); BAND NEUTROPHILS % (M) 14 % (0-4); ERYTHROBLAST% (NRBC) (M) 1 % (0-0); GIANT THROMBO% (M) 3 % (0-0); HYPOCHROMASIA 1+ (0-0); LYMPHOCYTES #M 0.8 10^3/ul (0.8-2.9); LYMPHOCYTES % (M) 6 % (15-51); MONOCYTE #M 1.1 10^3/ul (0.3-0.9); MONOCYTES % (M) 8 % (0-11); PLATELET MORPHOLOGY COMMENT @See below; POIKILOCYTOSIS 1+ (0-0); SEG NEUT #M 10.5 10^3/ul (1.6-7.5); SEGMENTED NEUTROPHILS (M) % 72 % (39-77); SMUDGE%M 3 % (0-0)
[2017-12-13] MEDS ORDERED: PROPOFOL 100 ML (17:04)
[2017-12-13 21:49] LABS: AADO2 Arterial 214.2 mmHg (7.0-24.0); Allen Test ACCEPTAB; Arterial Blood Gas Oxygen Sat 96.5 mmHG (95.0-98.0); Arterial COHb 0.8 % (0.0-3.0); Arterial Fraction of Oxyhgb 95.4 % (93.0-99.0); Arterial HCO3 40.3 mmol/L (22.0-26.0); Arterial MetHb 0.3 % (0.0-1.5); Arterial Total Hemglobin 10.8 g/dl (12.0-18.0); MODE VENT - AC; Site Right Radial
[2017-12-13 22:06] LABS: ADD UMIC YES; UR ASCORBIC ACID NEGATIVE (NEGATIVE); UR BILIRUBIN (Dip) NEGATIVE (NEGATIVE); UR BLOOD (Dip) 2+ mg/dL (NEGATIVE); UR CLARITY CLOUDY (CLEAR); UR COLOR YELLOW (YELLOW); UR GLUCOSE (Dip) NEGATIVE (NEGATIVE); UR KETONES (Dip) NEGATIVE (NEGATIVE); UR LEUKOCYTE ESTERASE (Dip) TRACE Leu/ul (NEGATIVE); UR MUCUS FEW /HPF (NONE SEEN); UR NITRITE (Dip) NEGATIVE (NEGATIVE); UR RBC 4 /HPF (0-5); UR SPECIFIC GRAVITY (Dip) 1.021 (1.003-1.030); UR TOTAL PROTEIN (Dip) 2+ mg/dl (NEGATIVE); UR UROBILINOGEN (Dip) NEGATIVE (NEGATIVE); UR WBC 9 /HPF (0-5)
[2017-12-13 22:07] LABS: ALANINE AMINOTRANSFERASE 85 IU/L (13-69); ALBUMIN 2.5 g/dl (3.3-4.9); ALBUMIN/GLOBULIN RATIO 0.89; ALKALINE PHOSPHATASE 64 IU/L (42-121); AMYLASE 592 U/L (11-123); ASPARTATE AMINO TRANSFERASE 111 IU/L (15-46); BILIRUBIN,INDIRECT 0.3 mg/dl (0-1.1); BILIRUBIN,TOTAL 0.3 mg/dl (0.2-1.3); BLOOD UREA NITROGEN 52 mg/dl (7-20); CALCIUM 7.5 mg/dl (8.4-10.2); CHLORIDE 100 mmol/L (97-110); CREATINE KINASE 365 IU/L (23-200); CREATININE 0.96 mg/dl (0.44-1.00); GLUCOSE 139 mg/dl (70-220); LIPASE 48 U/L (23-300); PHOSPHORUS 3.2 mg/dl (2.5-4.9); POTASSIUM 3.8 mmol/L (3.5-5.1); SODIUM 149 mmol/L (135-144); TOTAL PROTEIN 5.3 g/dl (6.1-8.1)
[2017-12-13 22:11] LABS: ANION GAP 13 (8-16)
[2017-12-13 22:11] LABS: SODIUM,URINE RANDOM 81 mmol/L (30-90)
[2017-12-13 22:14] LABS: CARBON DIOXIDE 40 mmol/L (21-31)
[2017-12-13 22:18] LABS: CK INDEX 4.4
[2017-12-13 22:21] LABS: INR 1.19; PROTIME 15.3 Sec (11.9-14.9); PT RATIO 1.2
[2017-12-13 22:22] LABS: PARTIAL THROMBOPLASTIN TIME 28.7 Sec (25.0-35.0)
[2017-12-13] MEDS ORDERED: niCARdipine-NS 0.1MG/ML DRIP 200 ML IV (22:30)
[2017-12-13] MEDS: hydrALAzine 20 MG INJ IV (22:38)
[2017-12-13 23:09] LABS: D-DIMER > 10000.00 ng/ml (<460)
[2017-12-14] MEDS: ACCU-CHEK XX ×24 (01:07→23:49)
[2017-12-14] MEDS: VANCOMYCIN 500MG/NS (PMX) 100 ML IVPB ×2 (01:08→14:07)
[2017-12-14] MEDS: OCULAR LUBRICANT 3.5 GM OPH OINT BOTH EYES ×4 (01:08→19:07)
[2017-12-14 01:31] LABS: AMPHETAMINE/METHAMPHETAMINE Negative (NEGATIVE)
[2017-12-14 01:33] LABS: BARBITURATES Negative (NEGATIVE); BENZODIAZEPINES Negative (NEGATIVE); CANNABINOIDS Negative (NEGATIVE); COCAINE Negative (NEGATIVE); OPIATES Negative (NEGATIVE)
[2017-12-14] MEDS: INSULIN HUMAN REGULAR 100 UNIT in SOD CHLORIDE 0.9% 99 ML IV (02:13)
[2017-12-14 03:43] LABS: AADO2 Arterial 215.5 mmHg (7.0-24.0); Allen Test ACCEPTAB; Arterial Base Excess 7.8 mmol/L (-3.0-3); Arterial Blood Gas Oxygen Sat 96.6 mmHG (95.0-98.0); Arterial COHb 0.4 % (0.0-3.0); Arterial Fraction of Oxyhgb 95.9 % (93.0-99.0); Arterial HCO3 35.5 mmol/L (22.0-26.0); Arterial MetHb 0.3 % (0.0-1.5); Arterial Total Hemglobin 10.5 g/dl (12.0-18.0); Arterial pCO2 58.9 mmhg (35-45); Blood Gas Mean Airway Pressure 12; MODE VENT - AC; Site Left Radial; Temperature 33.4 C
[2017-12-14 05:04] LABS: ADD MAN DIFF? NO
[2017-12-14 05:30] LABS: INR 1.13; PROTIME 14.7 Sec (11.9-14.9); PT RATIO 1.1
[2017-12-14 05:35] LABS: HEMATOCRIT 31.5 % (37.0-47.0); HEMOGLOBIN 9.3 g/dl (12.0-16.0); MEAN CORPUSCULAR HEMOGLOBIN 29.2 pg (29.0-33.0); MEAN CORPUSCULAR HGB CONC 29.5 g/dl (32.0-37.0); MEAN CORPUSCULAR VOLUME 99.1 fl (82.0-101.0); PLATELET COUNT 145 10^3/UL (140-415); RED BLOOD COUNT 3.18 10^6/ul (4.20-5.40); RED CELL DISTRIBUTION WIDTH 17.7 % (11.5-14.5)
[2017-12-14 05:35] LABS: WHITE BLOOD COUNT 15.4 10^3/ul (4.8-10.8)
[2017-12-14 05:36] LABS: POSITIVE DIFF @See below
[2017-12-14 05:47] LABS: ALANINE AMINOTRANSFERASE 88 IU/L (13-69); ALBUMIN 2.6 g/dl (3.3-4.9); ALBUMIN/GLOBULIN RATIO 0.83; ALKALINE PHOSPHATASE 69 IU/L (42-121); AMYLASE 625 U/L (11-123); ASPARTATE AMINO TRANSFERASE 97 IU/L (15-46); BILIRUBIN,INDIRECT 0.2 mg/dl (0-1.1); BILIRUBIN,TOTAL 0.2 mg/dl (0.2-1.3); BLOOD UREA NITROGEN 51 mg/dl (7-20); CALCIUM 7.4 mg/dl (8.4-10.2); CHLORIDE 102 mmol/L (97-110); CREATINE KINASE 350 IU/L (23-200); CREATININE 0.91 mg/dl (0.44-1.00); GLUCOSE 125 mg/dl (70-220); LIPASE 26 U/L (23-300); PHOSPHORUS 4.1 mg/dl (2.5-4.9); POTASSIUM 4.1 mmol/L (3.5-5.1); SODIUM 151 mmol/L (135-144); TOTAL PROTEIN 5.7 g/dl (6.1-8.1)
[2017-12-14 05:48] LABS: LACTIC ACID 3.1 mmol/L (0.5-2.0)
[2017-12-14] MEDS: VECURONIUM 100 MG in DEXTROSE 5% 100 ML IV (05:56)
[2017-12-14 05:57] LABS: CK INDEX 4.6; TROPONIN-I 0.062 ng/ml (0.000-0.120)
[2017-12-14 06:04] LABS: ANION GAP 11 (8-16)
[2017-12-14 06:05] LABS: CARBON DIOXIDE 42 mmol/L (21-31)
[2017-12-14 06:26] LABS: PARTIAL THROMBOPLASTIN TIME 30.9 Sec (25.0-35.0)
[2017-12-14 06:49] LABS: CREATINE KINASE 356 IU/L (23-200)
[2017-12-14 06:49] LABS: URIC ACID 6.7 mg/dl (3.1-7.9)
[2017-12-14 06:50] LABS: PHOSPHORUS 4.1 mg/dl (2.5-4.9)
[2017-12-14] MEDS: ACETAMINOPHEN 650MG/20.3ML CUP PO ×3 (06:54→18:08)
[2017-12-14] MEDS: SOD CHLORIDE 0.9% 1,000 ML IV (06:54)
[2017-12-14 07:11] LABS: ALANINE AMINOTRANSFERASE 85 IU/L (13-69); ALBUMIN 2.8 g/dl (3.3-4.9); ALBUMIN/GLOBULIN RATIO 0.87; ALKALINE PHOSPHATASE 70 IU/L (42-121); ANION GAP 16 (8-16); ASPARTATE AMINO TRANSFERASE 98 IU/L (15-46); BILIRUBIN,INDIRECT 0.3 mg/dl (0-1.1); BILIRUBIN,TOTAL 0.3 mg/dl (0.2-1.3); BLOOD UREA NITROGEN 50 mg/dl (7-20); CALCIUM 7.6 mg/dl (8.4-10.2); CARBON DIOXIDE 37 mmol/L (21-31); CHLORIDE 100 mmol/L (97-110); CREATININE 0.92 mg/dl (0.44-1.00); GLUCOSE 124 mg/dl (70-220); SODIUM 149 mmol/L (135-144)
[2017-12-14 07:21] LABS: D-DIMER > 10000.00 ng/ml (<460)
[2017-12-14 08:30] LABS: ANISOCYTOSIS 1+ (0-0); BAND NEUTROPHILS #M 2.3 10^3/ul (0.0-0.6); BAND NEUTROPHILS % (M) 15 % (0-4); GIANT THROMBO% (M) 2 % (0-0); HYPOCHROMASIA 1+ (0-0); LYMPHOCYTES #M 1.2 10^3/ul (0.8-2.9); LYMPHOCYTES % (M) 8 % (15-51); METAMYELOCYTES #M 0.1 10^3/ul (0.0-0.0); METAMYELOCYTES %M 1 % (0-0); MONOCYTE #M 1.3 10^3/ul (0.3-0.9); MONOCYTES % (M) 9 % (0-11); MYELOCYTES #M 0.1 10^3/ul (0.0-0.0); MYELOCYTES % (M) 1 % (0-0); PLATELET ESTIMATE DECREASED; PLATELET MORPHOLOGY COMMENT @See below; POIKILOCYTOSIS 1+ (0-0); SEG NEUT #M 10.4 10^3/ul (1.6-7.5); SEGMENTED NEUTROPHILS (M) % 65 % (39-77)
[2017-12-14] MEDS: ARTIFICIAL TEARS 15 ML OPH BOTH EYES ×4 (09:00→20:46)
[2017-12-14] MEDS: ASPIRIN 325 MG TAB NGT (09:20)
[2017-12-14] MEDS: CEFEPIME 1GM/50 ML (PMX) 50 ML IVPB ×2 (09:20→20:46)
[2017-12-14 09:23] LABS: AADO2 Arterial 140.5 mmHg (7.0-24.0); Allen Test ACCEPTAB; Arterial Blood Gas Oxygen Sat 95.6 mmHG (95.0-98.0); Arterial COHb 0.5 % (0.0-3.0); Arterial Fraction of Oxyhgb 94.8 % (93.0-99.0); Arterial HCO3 34.9 mmol/L (22.0-26.0); Arterial MetHb 0.3 % (0.0-1.5); Arterial Total Hemglobin 8.7 g/dl (12.0-18.0); MODE VENT - AC; Site Right Radial
[2017-12-14 10:02] LABS: ALANINE AMINOTRANSFERASE 68 IU/L (13-69); ALBUMIN 2.1 g/dl (3.3-4.9); ALBUMIN/GLOBULIN RATIO 0.84; ALKALINE PHOSPHATASE 58 IU/L (42-121); AMYLASE 581 U/L (11-123); ANION GAP 9 (8-16); ASPARTATE AMINO TRANSFERASE 70 IU/L (15-46); BILIRUBIN,INDIRECT 0.3 mg/dl (0-1.1); BILIRUBIN,TOTAL 0.3 mg/dl (0.2-1.3); BLOOD UREA NITROGEN 46 mg/dl (7-20); CALCIUM 6.7 mg/dl (8.4-10.2); CARBON DIOXIDE 37 mmol/L (21-31); CHLORIDE 101 mmol/L (97-110); CREATINE KINASE 278 IU/L (23-200); CREATININE 0.77 mg/dl (0.44-1.00); GLUCOSE 98 mg/dl (70-220); LIPASE 35 U/L (23-300); PHOSPHORUS 3.7 mg/dl (2.5-4.9); POTASSIUM 4.2 mmol/L (3.5-5.1); SODIUM 143 mmol/L (135-144); TOTAL PROTEIN 4.6 g/dl (6.1-8.1)
[2017-12-14 10:04] LABS: LACTIC ACID 2.1 mmol/L (0.5-2.0)
[2017-12-14 10:07] LABS: CK INDEX 5.4; INR 1.23; PROTIME 15.7 Sec (11.9-14.9); PT RATIO 1.2
[2017-12-14 10:08] LABS: PARTIAL THROMBOPLASTIN TIME 35.6 Sec (25.0-35.0)
[2017-12-14 10:47] LABS: CREATININE,URINE RANDOM 36.37 mg/dl (20-320); PROTEIN/CREAT RATIO 1.23 RATIO
[2017-12-14] MEDS ORDERED: NORepinephrine 8MG/250 ML (PMX 250 ML (11:08)
[2017-12-14 11:21] LABS: D-DIMER > 10000.00 ng/ml (<460)
[2017-12-14] MEDS: DEXTROSE 5%-0.45% NACL 1,000 ML IV (11:40)
[2017-12-14 11:55] LABS: ADD MAN DIFF? NO
[2017-12-14 11:59] LABS: WHITE BLOOD COUNT 13.8 10^3/ul (4.8-10.8)
[2017-12-14 11:59] LABS: HEMATOCRIT 26.6 % (37.0-47.0); HEMOGLOBIN 7.9 g/dl (12.0-16.0); LYMPHOCYTES % 5.1 % (15.0-51.0); MEAN CORPUSCULAR HEMOGLOBIN 29.8 pg (29.0-33.0); MEAN CORPUSCULAR HGB CONC 29.7 g/dl (32.0-37.0); MEAN CORPUSCULAR VOLUME 100.4 fl (82.0-101.0); MEAN PLATELET VOLUME 10.8 fl (7.4-10.4); PLATELET COUNT 129 10^3/UL (140-415); RED BLOOD COUNT 2.65 10^6/ul (4.20-5.40); RED CELL DISTRIBUTION WIDTH 18.1 % (11.5-14.5)
[2017-12-14 12:00] LABS: ABNORMAL IP MESSAGE 1; BASOPHILS % 0.3 % (0.0-2.0); LYMPHOCYTES # 0.7 10^3/ul (0.8-2.9); MONOCYTE # 1.5 10^3/ul (0.3-0.9); MONOCYTES % 11.2 % (0.0-11.0); NEUTROPHIL # 11.5 10^3/ul (1.6-7.5)
[2017-12-14 12:22] LABS: POSITIVE DIFF @See below
[2017-12-14 13:20] LABS: ANISOCYTOSIS 1+ (0-0); BAND NEUTROPHILS #M 4.2 10^3/ul (0.0-0.6); BAND NEUTROPHILS % (M) 31 % (0-4); HYPOCHROMASIA 1+ (0-0); LYMPHOCYTES #M 0.5 10^3/ul (0.8-2.9); LYMPHOCYTES % (M) 4 % (15-51); METAMYELOCYTES #M 0.1 10^3/ul (0.0-0.0); METAMYELOCYTES %M 1 % (0-0); MONOCYTE #M 0.9 10^3/ul (0.3-0.9); MONOCYTES % (M) 7 % (0-11); PLATELET ESTIMATE DECREASED; POIKILOCYTOSIS 1+ (0-0); POLYCHROMASIA 1+ (0-0); SEG NEUT #M 8.4 10^3/ul (1.6-7.5); SEGMENTED NEUTROPHILS (M) % 57 % (39-77); SMUDGE%M 7 % (0-0)
[2017-12-14 15:11] LABS: HEMATOCRIT 26.6 % (37.0-47.0); HEMOGLOBIN 7.9 g/dl (12.0-16.0); MEAN CORPUSCULAR HEMOGLOBIN 29.5 pg (29.0-33.0); MEAN CORPUSCULAR HGB CONC 29.7 g/dl (32.0-37.0); MEAN CORPUSCULAR VOLUME 99.3 fl (82.0-101.0); MEAN PLATELET VOLUME 10.6 fl (7.4-10.4); PLATELET COUNT 123 10^3/UL (140-415); RED BLOOD COUNT 2.68 10^6/ul (4.20-5.40); RED CELL DISTRIBUTION WIDTH 18.1 % (11.5-14.5)
[2017-12-14 15:11] LABS: WHITE BLOOD COUNT 13.7 10^3/ul (4.8-10.8)
[2017-12-14 15:18] LABS: ADD MAN DIFF? YES; POSITIVE DIFF @See below
[2017-12-14 15:30] LABS: ALANINE AMINOTRANSFERASE 66 IU/L (13-69); ALBUMIN 2.2 g/dl (3.3-4.9); ALBUMIN/GLOBULIN RATIO 0.81; ALKALINE PHOSPHATASE 62 IU/L (42-121); AMYLASE 746 U/L (11-123); ANION GAP 8 (8-16); ASPARTATE AMINO TRANSFERASE 65 IU/L (15-46); BILIRUBIN,INDIRECT 0.2 mg/dl (0-1.1); BILIRUBIN,TOTAL 0.2 mg/dl (0.2-1.3); BLOOD UREA NITROGEN 44 mg/dl (7-20); CALCIUM 6.9 mg/dl (8.4-10.2); CARBON DIOXIDE 37 mmol/L (21-31); CHLORIDE 101 mmol/L (97-110); CREATINE KINASE 264 IU/L (23-200); CREATININE 0.79 mg/dl (0.44-1.00); GLUCOSE 128 mg/dl (70-220); LIPASE 78 U/L (23-300); PHOSPHORUS 3.6 mg/dl (2.5-4.9); POTASSIUM 4.1 mmol/L (3.5-5.1); SODIUM 142 mmol/L (135-144); TOTAL PROTEIN 4.9 g/dl (6.1-8.1)
[2017-12-14 15:32] LABS: LACTIC ACID 3.2 mmol/L (0.5-2.0)
[2017-12-14 15:32] LABS: INR 1.19; PROTIME 15.3 Sec (11.9-14.9); PT RATIO 1.2
[2017-12-14 15:33] LABS: PARTIAL THROMBOPLASTIN TIME 34.2 Sec (25.0-35.0)
[2017-12-14 15:41] LABS: TROPONIN-I 0.044 ng/ml (0.000-0.120)
[2017-12-14 15:51] LABS: AADO2 Arterial 185.9 mmHg (7.0-24.0); Allen Test ACCEPTAB; Arterial Base Excess 7.3 mmol/L (-3.0-3); Arterial COHb 0.5 % (0.0-3.0); Arterial Fraction of Oxyhgb 88.5 % (93.0-99.0); Arterial HCO3 33.1 mmol/L (22.0-26.0); Arterial MetHb 0.1 % (0.0-1.5); Arterial Total Hemglobin 8.5 g/dl (12.0-18.0); Arterial pCO2 48.4 mmhg (35-45); MODE VENT - AC; Site Right Radial
[2017-12-14 15:56] LABS: D-DIMER > 10000.00 ng/ml (<460)
[2017-12-14 16:16] LABS: ANISOCYTOSIS 1+ (0-0); BAND NEUTROPHILS #M 4.9 10^3/ul (0.0-0.6); BAND NEUTROPHILS % (M) 36 % (0-4); LYMPHOCYTES #M 1.2 10^3/ul (0.8-2.9); LYMPHOCYTES % (M) 9 % (15-51); MONOCYTE #M 0.4 10^3/ul (0.3-0.9); MONOCYTES % (M) 3 % (0-11); PLATELET MORPHOLOGY COMMENT @See below; POIKILOCYTOSIS 1+ (0-0); POLYCHROMASIA 1+ (0-0); SEG NEUT #M 7.8 10^3/ul (1.6-7.5); SEGMENTED NEUTROPHILS (M) % 52 % (39-77); SMUDGE%M 3 % (0-0)
[2017-12-14] MEDS: LEVETIRACETAM 500 MG (PMX) 100 ML IVPB (17:25)
[2017-12-14] MEDS: PROPOFOL 100 ML IV (17:42)
[2017-12-14 21:17] LABS: WHITE BLOOD COUNT 14.8 10^3/ul (4.8-10.8)
[2017-12-14 21:17] LABS: HEMATOCRIT 25.1 % (37.0-47.0); HEMOGLOBIN 7.6 g/dl (12.0-16.0); MEAN CORPUSCULAR HEMOGLOBIN 29.7 pg (29.0-33.0); MEAN CORPUSCULAR HGB CONC 30.3 g/dl (32.0-37.0); MEAN PLATELET VOLUME 10.5 fl (7.4-10.4); PLATELET COUNT 154 10^3/UL (140-415); RED BLOOD COUNT 2.56 10^6/ul (4.20-5.40); RED CELL DISTRIBUTION WIDTH 18.6 % (11.5-14.5)
[2017-12-14 21:21] LABS: ADD MAN DIFF? YES; POSITIVE DIFF @See below
[2017-12-14 21:35] LABS: ALANINE AMINOTRANSFERASE 61 IU/L (13-69); ALBUMIN 2.3 g/dl (3.3-4.9); ALBUMIN/GLOBULIN RATIO 0.85; ALKALINE PHOSPHATASE 63 IU/L (42-121); AMYLASE 696 U/L (11-123); ANION GAP 10 (8-16); ASPARTATE AMINO TRANSFERASE 57 IU/L (15-46); BILIRUBIN,INDIRECT 0.3 mg/dl (0-1.1); BILIRUBIN,TOTAL 0.3 mg/dl (0.2-1.3); BLOOD UREA NITROGEN 40 mg/dl (7-20); CALCIUM 6.9 mg/dl (8.4-10.2); CARBON DIOXIDE 34 mmol/L (21-31); CHLORIDE 100 mmol/L (97-110); CREATINE KINASE 206 IU/L (23-200); CREATININE 0.86 mg/dl (0.44-1.00); GLUCOSE 98 mg/dl (70-220); LIPASE 34 U/L (23-300); PHOSPHORUS 4.3 mg/dl (2.5-4.9); POTASSIUM 4.6 mmol/L (3.5-5.1); SODIUM 139 mmol/L (135-144)
[2017-12-14 21:39] LABS: LACTIC ACID 1.6 mmol/L (0.5-2.0)
[2017-12-14 21:43] LABS: PROTIME 15.4 Sec (11.9-14.9); PT RATIO 1.2
[2017-12-14 21:44] LABS: PARTIAL THROMBOPLASTIN TIME 33.1 Sec (25.0-35.0)
[2017-12-14 21:46] LABS: CK INDEX 5.5; TROPONIN-I 0.054 ng/ml (0.000-0.120)
[2017-12-14 22:02] LABS: ANISOCYTOSIS 1+ (0-0); BAND NEUTROPHILS % (M) 41 % (0-4); GIANT THROMBO% (M) 3 % (0-0); HYPOCHROMASIA 2+ (0-0); LYMPHOCYTES % (M) 7 % (15-51); MONOCYTES % (M) 7 % (0-11); PLATELET ESTIMATE NORMAL; POLYCHROMASIA 3+ (0-0); SEG NEUT #M 7.5 10^3/ul (1.6-7.5); SEGMENTED NEUTROPHILS (M) % 45 % (39-77); SMUDGE%M 6 % (0-0)
[2017-12-14 22:06] LABS: AADO2 Arterial 206.8 mmHg (7.0-24.0); Allen Test ACCEPTAB; Arterial Base Excess 4.8 mmol/L (-3.0-3); Arterial Blood Gas Oxygen Sat 99.3 mmHG (95.0-98.0); Arterial COHb 0.7 % (0.0-3.0); Arterial Fraction of Oxyhgb 98.6 % (93.0-99.0); Arterial HCO3 30.3 mmol/L (22.0-26.0); Arterial MetHb 0 % (0.0-1.5); Arterial Total Hemglobin 11.3 g/dl (12.0-18.0); Arterial pCO2 45.2 mmhg (35-45); MODE VENT - AC; Site Left Radial; Temperature 35.1 C
[2017-12-14 22:24] LABS: D-DIMER > 10000.00 ng/ml (<460)
[2017-12-15] MEDS: LEVETIRACETAM 500 MG (PMX) 100 ML IVPB ×2 (00:31→08:39)
[2017-12-15] MEDS: ACETAMINOPHEN 650MG/20.3ML CUP PO ×4 (00:42→20:57)
[2017-12-15] MEDS: ACCU-CHEK XX ×15 (00:42→14:00)
[2017-12-15] MEDS: CALCIUM GLUCONATE 10% 1 GM in DEXTROSE 5% 100 ML IVPB (00:56)
[2017-12-15] MEDS: DEXTROSE 5%-0.45% NACL 1,000 ML IV (00:57)
[2017-12-15 01:01] LABS: ABNORMAL IP MESSAGE 1; HEMATOCRIT 25.1 % (37.0-47.0); HEMOGLOBIN 7.6 g/dl (12.0-16.0); MEAN CORPUSCULAR HEMOGLOBIN 29.9 pg (29.0-33.0); MEAN CORPUSCULAR HGB CONC 30.3 g/dl (32.0-37.0); MEAN CORPUSCULAR VOLUME 98.8 fl (82.0-101.0); MEAN PLATELET VOLUME 11.1 fl (7.4-10.4); PLATELET COUNT 140 10^3/UL (140-415); RED BLOOD COUNT 2.54 10^6/ul (4.20-5.40); RED CELL DISTRIBUTION WIDTH 18.6 % (11.5-14.5)
[2017-12-15 01:01] LABS: WHITE BLOOD COUNT 14.3 10^3/ul (4.8-10.8)
[2017-12-15 01:07] LABS: POSITIVE DIFF @See below
[2017-12-15 01:08] LABS: ADD MAN DIFF? YES
[2017-12-15 01:21] LABS: VANCOMYCIN,TROUGH 16.3 ug/ml (10.0-20.0)
[2017-12-15] MEDS: OCULAR LUBRICANT 3.5 GM OPH OINT BOTH EYES ×4 (01:50→20:57)
[2017-12-15] MEDS: VANCOMYCIN 500MG/NS (PMX) 100 ML IVPB ×2 (02:17→13:33)
[2017-12-15 03:03] LABS: BAND NEUTROPHILS #M 4.1 10^3/ul (0.0-0.6); BAND NEUTROPHILS % (M) 29 % (0-4); BASOPHIL #M 0.1 10^3/ul (0.0-0.0); BASOPHILS % (M) 1 % (0-2); GIANT THROMBO% (M) 2 % (0-0); LYMPHOCYTES #M 0.2 10^3/ul (0.8-2.9); LYMPHOCYTES % (M) 2 % (15-51); MONOCYTE #M 0.8 10^3/ul (0.3-0.9); MONOCYTES % (M) 6 % (0-11); PLATELET ESTIMATE NORMAL; POIKILOCYTOSIS 1+ (0-0); SEG NEUT #M 9.5 10^3/ul (1.6-7.5); SEGMENTED NEUTROPHILS (M) % 62 % (39-77); SMUDGE%M 10 % (0-0)
[2017-12-15 03:06] LABS: AADO2 Arterial 203.5 mmHg (7.0-24.0); Allen Test ACCEPTAB; Arterial Blood Gas Oxygen Sat 97.3 mmHG (95.0-98.0); Arterial COHb 0.4 % (0.0-3.0); Arterial Fraction of Oxyhgb 96.9 % (93.0-99.0); Arterial HCO3 33.1 mmol/L (22.0-26.0); Arterial MetHb 0 % (0.0-1.5); Arterial Total Hemglobin 8.8 g/dl (12.0-18.0); Arterial pCO2 54.3 mmhg (35-45); MODE VENT - AC; Site Left Radial
[2017-12-15] MEDS: PROPOFOL 100 ML IV (05:14)
[2017-12-15 05:20] LABS: WHITE BLOOD COUNT 15.3 10^3/ul (4.8-10.8)
[2017-12-15 05:20] LABS: ABNORMAL IP MESSAGE 1; HEMATOCRIT 26.5 % (37.0-47.0); HEMOGLOBIN 8.1 g/dl (12.0-16.0); MEAN CORPUSCULAR HEMOGLOBIN 30.2 pg (29.0-33.0); MEAN CORPUSCULAR HGB CONC 30.6 g/dl (32.0-37.0); MEAN CORPUSCULAR VOLUME 98.9 fl (82.0-101.0); MEAN PLATELET VOLUME 11.2 fl (7.4-10.4); PLATELET COUNT 148 10^3/UL (140-415); RED BLOOD COUNT 2.68 10^6/ul (4.20-5.40); RED CELL DISTRIBUTION WIDTH 18.7 % (11.5-14.5)
[2017-12-15 05:41] LABS: INR 1.17; PROTIME 15.1 Sec (11.9-14.9); PT RATIO 1.2
[2017-12-15 05:42] LABS: PARTIAL THROMBOPLASTIN TIME 31.4 Sec (25.0-35.0)
[2017-12-15 05:47] LABS: ALANINE AMINOTRANSFERASE 64 IU/L (13-69); ALBUMIN 2.4 g/dl (3.3-4.9); ALBUMIN/GLOBULIN RATIO 0.82; ALKALINE PHOSPHATASE 73 IU/L (42-121); AMYLASE 535 U/L (11-123); ANION GAP 8 (8-16); ASPARTATE AMINO TRANSFERASE 53 IU/L (15-46); BILIRUBIN,INDIRECT 0.2 mg/dl (0-1.1); BILIRUBIN,TOTAL 0.2 mg/dl (0.2-1.3); BLOOD UREA NITROGEN 38 mg/dl (7-20); CALCIUM 7.4 mg/dl (8.4-10.2); CARBON DIOXIDE 37 mmol/L (21-31); CHLORIDE 102 mmol/L (97-110); CREATINE KINASE 160 IU/L (23-200); CREATININE 0.91 mg/dl (0.44-1.00); GLUCOSE 111 mg/dl (70-220); LIPASE 30 U/L (23-300); PHOSPHORUS 4.6 mg/dl (2.5-4.9); POTASSIUM 5.1 mmol/L (3.5-5.1); SODIUM 142 mmol/L (135-144); TOTAL PROTEIN 5.3 g/dl (6.1-8.1)
[2017-12-15 05:50] LABS: ADD MAN DIFF? YES; POSITIVE DIFF @See below
[2017-12-15 05:51] LABS: CK INDEX 5.5; CK-MB 8.87 ng/ml (0.0-2.4); TROPONIN-I 0.057 ng/ml (0.000-0.120)
[2017-12-15 06:01] LABS: D-DIMER 9237.33 ng/ml (<460)
[2017-12-15] MEDS: PANTOPRAZOLE 40 MG INJ IV (06:01)
[2017-12-15 07:29] LABS: ANISOCYTOSIS 1+ (0-0); BAND NEUTROPHILS #M 5.5 10^3/ul (0.0-0.6); BAND NEUTROPHILS % (M) 36 % (0-4); BURR CELLS 1+ (0-0); LYMPHOCYTES #M 0.9 10^3/ul (0.8-2.9); LYMPHOCYTES % (M) 6 % (15-51); MONOCYTE #M 0.4 10^3/ul (0.3-0.9); MONOCYTES % (M) 3 % (0-11); PLATELET ESTIMATE NORMAL; POIKILOCYTOSIS 1+ (0-0); SEG NEUT #M 9.3 10^3/ul (1.6-7.5); SEGMENTED NEUTROPHILS (M) % 55 % (39-77); SMUDGE%M 43 % (0-0)
[2017-12-15] MEDS: CEFEPIME 1GM/50 ML (PMX) 50 ML IVPB ×2 (08:39→20:57)
[2017-12-15] MEDS: ASPIRIN 325 MG TAB NGT (08:39)
[2017-12-15] MEDS: ARTIFICIAL TEARS 15 ML OPH BOTH EYES ×4 (08:40→20:57)
[2017-12-15] MEDS: LORAZEPAM 2 MG INJ IV ×3 (10:54→21:19)
[2017-12-15] MEDS: MIDAZOLAM (DRIP) 50 mg/50 mL 50 ML IV (11:31)
[2017-12-15] MEDS ORDERED: GLUCOSE GEL 15 GRAM TUBE PO ×2 (16:30)
[2017-12-15] MEDS ORDERED: DEXTROSE 50% 50 ML SYRINGE IV ×2 (16:30)
[2017-12-15] MEDS ORDERED: GLUCOSE GEL 15 GRAM TUBE BUCCAL (16:30)
[2017-12-15] MEDS ORDERED: GLUCAGON 1 MG INJ IM (16:30)
[2017-12-15] MEDS: INSULIN ASPART [NOVOLOG] 3 ML PEN SC ×2 (17:36→21:02)
[2017-12-15] MEDS: LEVETIRACETAM 1000 MG (PMX) 100 ML IVPB (20:57)
[2017-12-16] MEDS: INSULIN ASPART [NOVOLOG] 3 ML PEN SC ×4 (01:00→13:00)
[2017-12-16] MEDS: DEXTROSE 5%-0.45% NACL 1,000 ML IV (01:16)
[2017-12-16] MEDS: ACETAMINOPHEN 650MG/20.3ML CUP PO ×3 (01:16→14:24)
[2017-12-16] MEDS: OCULAR LUBRICANT 3.5 GM OPH OINT BOTH EYES ×3 (01:18→14:24)
[2017-12-16] MEDS ORDERED: ACCU-CHEK XX (02:00)
[2017-12-16] MEDS: VANCOMYCIN 500MG/NS (PMX) 100 ML IVPB ×2 (02:19→14:24)
[2017-12-16 05:48] LABS: WHITE BLOOD COUNT 13.9 10^3/ul (4.8-10.8)
[2017-12-16 05:48] LABS: ABNORMAL IP MESSAGE 1; MEAN CORPUSCULAR HEMOGLOBIN 29.9 pg (29.0-33.0); MEAN CORPUSCULAR VOLUME 99.6 fl (82.0-101.0); MEAN PLATELET VOLUME 11.3 fl (7.4-10.4); NUCLEATED RED BLOOD CELLS% 0.1 /100WBC (0.0-0.0); PLATELET COUNT 149 10^3/UL (140-415); RED BLOOD COUNT 2.31 10^6/ul (4.20-5.40); RED CELL DISTRIBUTION WIDTH 19.1 % (11.5-14.5)
[2017-12-16 05:57] LABS: ADD MAN DIFF? YES; HEMOGLOBIN 6.9 g/dl (12.0-16.0); POSITIVE DIFF @See below
[2017-12-16 06:04] LABS: ANION GAP 11 (8-16); BLOOD UREA NITROGEN 24 mg/dl (7-20); CALCIUM 7.6 mg/dl (8.4-10.2); CARBON DIOXIDE 34 mmol/L (21-31); CHLORIDE 110 mmol/L (97-110); CREATININE 0.98 mg/dl (0.44-1.00); GLUCOSE 113 mg/dl (70-220); MAGNESIUM 1.8 mg/dl (1.7-2.5); PHOSPHORUS 3.9 mg/dl (2.5-4.9); POTASSIUM 4.6 mmol/L (3.5-5.1); SODIUM 150 mmol/L (135-144)
[2017-12-16] MEDS: PANTOPRAZOLE 40 MG INJ IV (06:22)
[2017-12-16] MEDS: PROPOFOL 100 ML IV (06:42)
[2017-12-16 08:27] LABS: BAND NEUTROPHILS #M 4.1 10^3/ul (0.0-0.6); BAND NEUTROPHILS % (M) 30 % (0-4); EOSINOPHILS % (M) 1 % (0-7); GIANT THROMBO% (M) 1 % (0-0); LYMPHOCYTES #M 1.1 10^3/ul (0.8-2.9); LYMPHOCYTES % (M) 8 % (15-51); MONOCYTE #M 0.5 10^3/ul (0.3-0.9); MONOCYTES % (M) 4 % (0-11); PLATELET ESTIMATE NORMAL; POLYCHROMASIA 1+ (0-0); SEG NEUT #M 8.5 10^3/ul (1.6-7.5); SEGMENTED NEUTROPHILS (M) % 57 % (39-77); SMUDGE%M 2 % (0-0)
[2017-12-16 08:46] LABS: AADO2 Arterial 200.4 mmHg (7.0-24.0); Allen Test ACCEPTAB; Arterial Base Excess 5.6 mmol/L (-3.0-3); Arterial Blood Gas Oxygen Sat 95.5 mmHG (95.0-98.0); Arterial COHb 0.3 % (0.0-3.0); Arterial Fraction of Oxyhgb 94.9 % (93.0-99.0); Arterial HCO3 32.8 mmol/L (22.0-26.0); Arterial MetHb 0.3 % (0.0-1.5); Arterial Total Hemglobin 8.5 g/dl (12.0-18.0); Arterial pCO2 65.7 mmhg (35-45); MODE VENT - AC; Site Right Radial
[2017-12-16] MEDS: CEFEPIME 1GM/50 ML (PMX) 50 ML IVPB (09:23)
[2017-12-16] MEDS: ASPIRIN 81 MG TAB NGT (09:23)
[2017-12-16] MEDS: LEVETIRACETAM 1000 MG (PMX) 100 ML IVPB (09:23)
[2017-12-16] MEDS: ARTIFICIAL TEARS 15 ML OPH BOTH EYES ×2 (09:24→14:24)
[2017-12-16 11:51] LABS: IMMEDIATE SPIN CROSSMATCH 1 1
[2017-12-16] MEDS: DEXTROSE 5% 1,000 ML IV (12:48)
[2017-12-16] MEDS ORDERED: LORAZEPAM 2 MG INJ IV (15:00)
[2017-12-16] MEDS: morphine (DRIP) 100 MG/100 ML 100 ML IV (16:11)
== END 2017-12-16 19:34 | disposition expired | DRG 871 ==
LOC: ICU 12-13 00:46 → E/R 22:07
PROC: 0BH17EZ Insertion of Endotracheal Airway into Trachea, Via Natural or Artificial Opening (ICD-10-PCS; principal; 2017-12-13)
PROC: 5A1945Z Respiratory Ventilation, 24-96 Consecutive Hours (ICD-10-PCS; 2017-12-13)
PROC: 30233N1 Transfusion of Nonautologous Red Blood Cells into Peripheral Vein, Percutaneous Approach (ICD-10-PCS; 2017-12-16)
DX: A41.9 Sepsis, unspecified organism (principal); R65.21 Severe sepsis with septic shock; N17.0 Acute kidney failure with tubular necrosis; J96.02 Acute respiratory failure with hypercapnia; J96.01 Acute respiratory failure with hypoxia; G93.40 Encephalopathy, unspecified; J69.0 Pneumonitis due to inhalation of food and vomit; E87.0 Hyperosmolality and hypernatremia; E87.4 Mixed disorder of acid-base balance; Z99.11 Dependence on respirator [ventilator] status; G93.1 Anoxic brain damage, not elsewhere classified; I46.9 Cardiac arrest, cause unspecified; D64.9 Anemia, unspecified; F03.90 Unspecified dementia, unspecified severity, without behavioral disturbance, psychotic disturbance, mood disturbance, and anxiety; F32.9 Major depressive disorder, single episode, unspecified; J44.9 Chronic obstructive pulmonary disease, unspecified; I10 Essential (primary) hypertension; E78.5 Hyperlipidemia, unspecified; M19.90 Unspecified osteoarthritis, unspecified site; F20.9 Schizophrenia, unspecified; F31.9 Bipolar disorder, unspecified; E87.6 Hypokalemia; K21.9 Gastro-esophageal reflux disease without esophagitis; E83.39 Other disorders of phosphorus metabolism; E83.42 Hypomagnesemia
CPT/HCPCS: 31500; 36415; 36430; 36600; 71045; 76775; 76937; 80048; 80053; 80202; 80307; 81001; 81003; 82150; 82550; 82553; 82570; 82803; 82962; 83605; 83690; 83735; 84100; 84300; 84484; 84560; 85025; 85378; 85384; 85610; 85730; 86850; 86900; 86901; 86920; 87040; 87081; 87086; 89190; 89220; 92950; 93005; 93306; 94002; 94003; 94644; 94770; 95819; 96374; 96375; 99291-25